=== PATIENT | male | born 1950 | race Caucasian/White ===

== ENCOUNTER 2018-01-09 10:21 | Inpatient (IN) | payer OTHER ==
[~2018-01-09] VITALS: Ht 170.2 cm; Wt 94.9 kg
[2018-01-09 10:29] VITALS: Ht 170.2 cm; Wt 94.9 kg
[2018-01-09 11:44] LABS: BASOPHIL % 0.4 % (0-2); PLATELET COUNT 189 x10^3mcL (130-400); RED CELL DISTRIBUTION WIDTH 13.1 % (11.5-14.5)
[2018-01-09 11:59] LABS: CALCIUM 9.8 mg/dL (8.5-10.1); CARBON DIOXIDE 28.8 mmol/L (21-32); CHLORIDE SERUM 102 mmol/L (98-107); CREATININE SERUM 0.9 mg/dL (0.7-1.3); GFR1 > 60 mL/min; GLUCOSE SERUM 155 mg/dL (74-106); POTASSIUM SERUM 3.8 mmol/L (3.5-5.1); SODIUM SERUM 138 mmol/L (136-145)
[2018-01-09 12:04] LABS: ALKALINE PHOSPHATASE 87 U/L (46-116); ALT/SGPT 28 U/L (16-63); AST/SGOT 20 U/L (15-37); BILIRUBIN TOTAL 0.94 mg/dL (0.20-1.00); TOTAL PROTEIN, SERUM 6.8 g/dL (6.4-8.2)
[2018-01-09 12:06] LABS: ALBUMIN 3.2 g/dL (3.4-5.0)
[2018-01-09 12:42] LABS: T3 TOTAL 1.01 ng/mL
[2018-01-09 13:17] VITALS: BP 139/64
[2018-01-09 13:50] LABS: FREE T4 1.15 ng/dL (0.76-1.46); FREE THYROXINE INDEX 2.4 ug/dL (1.4-4.5); T4(THYROXINE) 6.4 ug/dL (4.7-13.3)
[2018-01-09 14:15] LABS: MAGNESIUM 1.7 mg/dL (1.8-2.4); PHOSPHOROUS 1.6 mg/dL (2.5-4.9)
[2018-01-09 14:17] LABS: CHOLESTEROL/HDL RATIO 3.4
[2018-01-09] MEDS ORDERED: HYDROCHLOROTHIA25 MG PO (16:00)
[2018-01-09] MEDS ORDERED: FLUTICASON0.05 MG/Ac (16:02)
[2018-01-09] MEDS ORDERED: METFORMIN HCL1000 MG PO (16:09)
[2018-01-09] MEDS ORDERED: THE MEDICINE S150 MG PO (16:10)
[2018-01-09] MEDS ORDERED: LANTI IJ (16:11)
[2018-01-09] MEDS ORDERED: [UNRECOGNIZED DRUG - OTHER] INJ (16:13)
[2018-01-09] MEDS ORDERED: FLO4 PO (16:14)
[2018-01-09] MEDS ORDERED: ZYR10 PO (16:14)
[2018-01-09] MEDS ORDERED: METOPROLOL SUC200 M2 PO (16:15)
[2018-01-09] MEDS ORDERED: MAGNESIUM OXID400 MG PO (16:15)
[2018-01-09] MEDS ORDERED: [UNRECOGNIZED DRUG - OTHER] INJ (16:16)
[2018-01-09] MEDS ORDERED: LANTUS SOLOS100 U/M1 SC (16:18)
[2018-01-09] MEDS ORDERED: NOVI INJ (16:18)
[2018-01-09] MEDS ORDERED: COLACE100 MG PO ×2 (16:18→16:19)
[2018-01-09] MEDS ORDERED: ACETAMIN-CODE12.5 ML PO (16:19)
[2018-01-09] MEDS ORDERED: CALCITRIOL0.5 MCG PO (16:20)
[2018-01-09] MEDS ORDERED: NIASPAN1000 MG PO (16:20)
[2018-01-09] MEDS ORDERED: PREDNISONE5 MG PO (16:21)
[2018-01-09 16:57] VITALS: BP 147/73
[2018-01-09 20:54] VITALS: BP 173/72
[2018-01-09 21:29] VITALS: BP 117/75
[2018-01-09 21:53] LABS: UA SPECIFIC GRAVITY 1.025 (1.005-1.035); microscopic required? YES; urine erythrocyte NEGATIVE (NEGATIVE)
[2018-01-09 22:01] LABS: AMPHETAMINE QUAL UR NONE DETECTED (See below)
[2018-01-10 06:04] VITALS: BP 155/69
[2018-01-10 06:14] LABS: BASOPHIL % 0.3 % (0-2); PLATELET COUNT 187 x10^3mcL (130-400); RED CELL DISTRIBUTION WIDTH 13.2 % (11.5-14.5)
[2018-01-10 06:28] LABS: CALCIUM 9.8 mg/dL (8.5-10.1); CARBON DIOXIDE 28.4 mmol/L (21-32); CHLORIDE SERUM 102 mmol/L (98-107); CREATININE SERUM 0.8 mg/dL (0.7-1.3); GFR1 > 60 mL/min; GLUCOSE SERUM 242 mg/dL (74-106); MAGNESIUM 1.5 mg/dL (1.8-2.4); PHOSPHOROUS 2.9 mg/dL (2.5-4.9); POTASSIUM SERUM 3.6 mmol/L (3.5-5.1); SODIUM SERUM 136 mmol/L (136-145)
[2018-01-10 09:35] VITALS: BP 141/61
[2018-01-10 12:49] VITALS: BP 169/79
[2018-01-10 16:44] VITALS: BP 127/70
[2018-01-10 20:36] VITALS: BP 181/89
[2018-01-10 21:18] VITALS: BP 158/74
[2018-01-11] VITALS (7 sets, daily range): BP systolic 141–182; BP diastolic 71–83
[2018-01-11 06:36] LABS: BASOPHIL % 0.2 % (0-2); PLATELET COUNT 238 x10^3mcL (130-400); RED CELL DISTRIBUTION WIDTH 13.1 % (11.5-14.5)
[2018-01-11 06:51] LABS: CALCIUM 10.3 mg/dL (8.5-10.1); CARBON DIOXIDE 26.9 mmol/L (21-32); CHLORIDE SERUM 100 mmol/L (98-107); CREATININE SERUM 0.8 mg/dL (0.7-1.3); GFR1 > 60 mL/min; GLUCOSE SERUM 207 mg/dL (74-106); MAGNESIUM 1.5 mg/dL (1.8-2.4); POTASSIUM SERUM 3.2 mmol/L (3.5-5.1); SODIUM SERUM 135 mmol/L (136-145)
[2018-01-12 00:40] VITALS: BP 168/77
[2018-01-12 05:28] VITALS: BP 146/67
[2018-01-12 06:16] LABS: BASOPHIL % 0.3 % (0-2); PLATELET COUNT 240 x10^3mcL (130-400); RED CELL DISTRIBUTION WIDTH 12.9 % (11.5-14.5)
[2018-01-12 06:22] LABS: CALCIUM 10.1 mg/dL (8.5-10.1); CARBON DIOXIDE 27.8 mmol/L (21-32); CHLORIDE SERUM 101 mmol/L (98-107); CREATININE SERUM 0.7 mg/dL (0.7-1.3); GFR1 > 60 mL/min; GLUCOSE SERUM 168 mg/dL (74-106); POTASSIUM SERUM 3.2 mmol/L (3.5-5.1); SODIUM SERUM 133 mmol/L (136-145)
[2018-01-12 06:29] LABS: MAGNESIUM 1.2 mg/dL (1.8-2.4); PHOSPHOROUS 3.1 mg/dL (2.5-4.9)
[2018-01-12 09:02] VITALS: BP 147/74
[2018-01-12] MEDS ORDERED: BACTRIM DS1 TAB PO (15:22)
[2018-01-12 15:49] VITALS: BP 147/74
== END 2018-01-12 16:52 | disposition home or self-care (01) | DRG 602 ==
LOC: ED 10:21 → DU 11:46 → MU 11:46 → DU 13:19
PROVIDERS: Emergency Medicine; Family Medicine
DX: L03.116 Cellulitis of left lower limb (principal); I50.43 Acute on chronic combined systolic (congestive) and diastolic (congestive) heart failure; Z94.0 Kidney transplant status; L97.421 Non-pressure chronic ulcer of left heel and midfoot limited to breakdown of skin; E44.1 Mild protein-calorie malnutrition; D68.59 Other primary thrombophilia; L03.115 Cellulitis of right lower limb; L97.511 Non-pressure chronic ulcer of other part of right foot limited to breakdown of skin; I11.0 Hypertensive heart disease with heart failure; E11.621 Type 2 diabetes mellitus with foot ulcer; E11.65 Type 2 diabetes mellitus with hyperglycemia; E83.42 Hypomagnesemia; E83.39 Other disorders of phosphorus metabolism; R29.6 Repeated falls; Z79.4 Long term (current) use of insulin; Z68.36 Body mass index [BMI] 36.0-36.9, adult; Z87.891 Personal history of nicotine dependence; Z79.84 Long term (current) use of oral hypoglycemic drugs
CPT/HCPCS: 82962; 83880; 84153; 84439; J1644; J1815; J1940; J2543; J3370; J3475; J3490; J7030; Q0092